=== PATIENT | male | born 1995 | race Caucasian/White ===

== ENCOUNTER 2018-11-09 17:10 | Emergency (ER) | payer BC, OTHER ==
[2018-11-09 17:39] VITALS: BP 109/70
--- NOTE | 2018-11-09 18:56 | UC ---
GI Bleed HPI - HPI Summary HPI Summary: Pt states he had some bright red blood in the toilet after a bowel movement. He denies any abdominal. He is young but does not have rectal sex nor does he put anything in his rectum. He does not recall eating anything red the past couple of days. - History Of Current Complaint Chief Complaint: [facility]CGU Stated Complaint: BLOOD IN URINE Time Seen by Provider: 11/09/18 18:20 Hx Obtained From: Patient Onset/Duration: Sudden Onset Timing: Intermittent Episodes Lasting: - One time today Severity: Bright Red Blood per Rectum Severity Initially: Mild Severity Currently: None Pain Intensity: 0 Associated Pain: None Aggravating Factor(s): Bowel Movement Associated Signs And Symptoms: Positive: Negative - Risk Factors GI Bleed Risk Factors: Negative - Allergies/Home medications Allergies/Adverse Reactions: Allergies Allergy/AdvReac Type Severity Reaction Status Date / Time acetaminophen Allergy Rash Verified 11/09/18 17:35 egg Allergy Itching Verified 11/09/18 17:35 peanut Allergy Anaphylatic Verified 11/09/18 17:35 Shock shellfish derived Allergy Anaphylatic Verified 11/09/18 17:35 Shock tree nut Allergy Itching Verified 11/09/18 17:35 Home Medications: Home Medications NK [No Home Medications Reported] 11/09/18 [History Confirmed 11/09/18] PMH/Surg Hx/FS Hx/Imm Hx Previously Healthy: Yes - Surgical History Surgical History: None - Social History Occupation: Student Alcohol Use: Weekly Alcohol Amount: 3x week per pt Substance Use Type: None Smoking Status (MU): Never Smoked Tobacco Type: eCigarettes Review of Systems All Other Systems Reviewed And Are Negative: Yes Constitutional: Positive: Negative Skin: Positive: Negative Eyes: Positive: Negative ENT: Positive: Negative Respiratory: Positive: Negative Cardiovascular: Positive: Negative Gastrointestinal: Positive: Other - Bright red blood in toilet with stool today although he says he did not look at the color of his stool Genitourinary: Positive: Negative Motor: Positive: Negative Neurovascular: Positive: Negative Musculoskeletal: Positive: Negative Neurological: Positive: Negative Psychological: Positive: Negative Is Patient Immunocompromised?: No Physical Exam Triage Information Reviewed: Yes Appearance: Well-Appearing, No Pain Distress, Well-Nourished Vital Signs: Initial Vital Signs Temp 98.7 F 11/09/18 17:35 Pulse 71 11/09/18 17:35 Resp 18 11/09/18 17:35 BP 109/70 11/09/18 17:35 Pulse Ox 98 11/09/18 17:35 Vital Signs Reviewed: Yes Eye Exam: Normal Respiratory Exam: Normal Cardiovascular Exam: Normal Abdominal Exam: Normal Bowel Sounds: Positive: Present Musculoskeletal Exam: Normal Neurological Exam: Normal Psychological Exam: Normal Skin Exam: Normal - No hemorrhoids visualized, Clear pink mucus on glove for rectal exam done with other health care provider in room. Bleed Course/Dx - Course Course Of Treatment: Comfortable here. Stool for guiac was negative and no hemorrhoids were noted. - Differential Dx/Diagnosis Provider Diagnosis: History of bloody stools Discharge - Sign-Out/Discharge Documenting (check all that apply): Patient Departure All imaging exams completed and their final reports reviewed: No Studies - Discharge Plan Condition: Good Disposition: HOME Patient Education Materials: Rectal Bleeding (ED) Referrals: No Primary Care Phys,NOPCP [Primary Care Provider] - [facility] - Jose Elias ROJAS [[email or web address], APPLICATION, OTHER] - Additional Instructions: Monitor all of your bowels movements over the next few days. Follow up at the [facility] if you have continued concerns OR with a forest technology professor. Your stool test guiac was negative. - Billing Disposition and Condition Condition: GOOD Disposition: Home
== END 2018-11-09 19:06 | disposition home or self-care (01) ==
LOC: UCEAST 17:10
DX: R31.9 Hematuria, unspecified (principal); Z87.19 Personal history of other diseases of the digestive system; Z88.8 Allergy status to other drugs, medicaments and biological substances; Z91.010 Allergy to peanuts; Z91.013 Allergy to seafood; Z91.018 Allergy to other foods
CPT/HCPCS: 81003; 82270; 99211; G0463